=== PATIENT | female | born 1965 ===

== ENCOUNTER → 2020-01-14 | Outpatient (CLI) | payer OTHER ==
[~2020-01-14] MED LIST: CODE1TAB37 PO; Mylicon 125MG PO
== END | disposition home or self-care (01) ==
LOC: MRI 13:53
PROVIDERS: ATTEND Orthopaedic Surgery
DX: M54.5 Low back pain (principal); M25.552 Pain in left hip; M25.562 Pain in left knee; M25.551 Pain in right hip; M25.561 Pain in right knee
CPT/HCPCS: 72148; 72195; 73721

== ENCOUNTER 2020-02-24 13:46 | Outpatient (CLI) | payer OTHER | END 2020-02-24 13:58 | disposition home or self-care (01) | LOC: NUCLEAR 13:46 | PROVIDERS: ATTEND Physical Medicine & Rehabilitation | DX: M81.0 Age-related osteoporosis without current pathological fracture (principal) ==

== ENCOUNTER → 2020-03-31 | Outpatient (CLI) | payer OTHER | END | disposition home or self-care (01) | LOC: MAMO-SONO 14:08 | PROVIDERS: ATTEND Specialist | DX: Z12.31 Encounter for screening mammogram for malignant neoplasm of breast (principal); N60.11 Diffuse cystic mastopathy of right breast; N60.12 Diffuse cystic mastopathy of left breast ==

== ENCOUNTER 2021-04-06 13:47 | Outpatient (CLI) | payer OTHER | END 2021-04-06 14:06 | disposition home or self-care (01) | LOC: MAMO-SONO 13:47 | PROVIDERS: ATTEND Specialist | DX: N60.11 Diffuse cystic mastopathy of right breast (principal); N60.12 Diffuse cystic mastopathy of left breast; Z12.31 Encounter for screening mammogram for malignant neoplasm of breast ==

== ENCOUNTER 2021-04-06 14:51 | Outpatient (CLI) | payer OTHER | END 2021-04-06 15:01 | disposition home or self-care (01) | LOC: NUCLEAR 14:51 | PROVIDERS: ATTEND Specialist | DX: M81.0 Age-related osteoporosis without current pathological fracture (principal) ==

== ENCOUNTER 2024-03-06 09:16 | Outpatient (CLI) | payer OTHER | END 2024-03-06 09:32 | disposition home or self-care (01) | LOC: TOM 09:16 | PROVIDERS: ATTEND Internal Medicine Endocrinology, Diabetes & Metabolism | DX: K57.00 Diverticulitis of small intestine with perforation and abscess without bleeding (principal); K62.1 Rectal polyp ==

== ENCOUNTER 2024-07-29 14:19 | Outpatient (CLI) | payer OTHER | END 2024-07-29 14:28 | disposition home or self-care (01) | LOC: RAD 14:19 | PROVIDERS: ATTEND Orthopaedic Surgery | DX: M25.562 Pain in left knee (principal) ==

== ENCOUNTER 2024-08-08 12:10 | Outpatient (CLI) | payer OTHER ==
[~2024-08-08 12:10] MED LIST changes: +MEDROLPACK PO; +METHOCARBAMOL500 MG PO
== END 2024-08-08 12:19 | disposition home or self-care (01) ==
LOC: MAMO-SONO 12:10
PROVIDERS: ATTEND Specialist
DX: N60.11 Diffuse cystic mastopathy of right breast (principal)